=== PATIENT | female | born 1980 | race Two or more races ===

== ENCOUNTER 2018-10-07 14:14 | Emergency (ER) | payer MEDICAID ==
[~2018-10-07] VITALS: Ht 170.2 cm; Wt 90.0 kg
[2018-10-07] MEDS ORDERED: KETOROLAC 60MG/2ML VIAL IM ONE (14:45)
[2018-10-07 16:26] VITALS: BP 134/92
== END 2018-10-07 16:28 | disposition home or self-care (01) ==
LOC: ER 14:14
DX: S39.012A Strain of muscle, fascia and tendon of lower back, initial encounter (principal); E11.9 Type 2 diabetes mellitus without complications; I10 Essential (primary) hypertension; E78.00 Pure hypercholesterolemia, unspecified; V49.49XA Driver injured in collision with other motor vehicles in traffic accident, initial encounter; Y93.89 Activity, other specified; Y92.89 Other specified places as the place of occurrence of the external cause; Y99.8 Other external cause status; Z88.6 Allergy status to analgesic agent; Z88.8 Allergy status to other drugs, medicaments and biological substances
CPT/HCPCS: 72110; 96372; 99283; J1885